=== PATIENT | male | born 1965 | race Caucasian/White ===

== ENCOUNTER 2019-12-25 03:01 | Inpatient (IN) | payer OTHER ==
[2019-12-25 03:30] VITALS: BMI 91.7
[2019-12-25] MEDS ORDERED: SODIUM CHLORIDE 0.9% 500 ML INFUS.BAG IV ONE (04:08)
[2019-12-25] MEDS ORDERED: CYANOCOBALAMIN (VITAMIN B-12) 1000 MCG/1 ML VIAL IM ONE (04:15)
[2019-12-25] MEDS ORDERED: VANCOMYCIN 1 GM in D5W (PRE-DOCKED) 1,000 MG/250 ML IVPB ONE (04:22)
[2019-12-25] MEDS ORDERED: AMPICILLIN NA/SULBACTAM NA 3 GM in SODIUM CHLORIDE 100 ML IVPB ONE (04:23)
[2019-12-25] MEDS ORDERED: VANCOMYCIN 1 GRAM (PRE-DOCKED) 1,000 MG/250 ML BAG IVPB ONE (04:29)
[2019-12-25 05:19] LABS: BASO % 0.4 % (0-2.0); EOS % 5.4 % (0-4.5); HEMATOCRIT 37.5 % (35.4-49); HEMOGLOBIN 12.6 GM/dL (11.7-16.9); LYMPH % 15.5 % (8-40); MCH 28.2 pg (25.7-33.7); MCHC 33.5 g/dl (32.0-35.9); MEAN PLT VOLUME 8.7 fl (7.5-11.1); MONO % 8.1 % (3.8-10.2); NEUT % 70.6 % (42.8-82.8); PLATELET COUNT 187 K/MM3 (134-434); RBC 4.47 M/mm3 (4.00-5.60); RDW 14.9 % (11.9-15.9); WHITE BLOOD COUNT 10.1 K/mm3 (4.0-10.0)
[2019-12-25 05:21] LABS: CHLORIDE 98 mmol/L (98-107); POTASSIUM 4.1 mmol/L (3.5-5.1); SODIUM 136 mmol/L (136-145)
[2019-12-25 05:23] LABS: ALBUMIN 3.7 g/dl (3.4-5.0); ANION GAP 5 MMOL/L (8-16); CO2 33 mmol/L (21-32); GLUCOSE,RANDOM 199 mg/dL (74-106)
[2019-12-25 05:24] LABS: BLOOD UREA NITROGEN 13.2 mg/dL (7-18)
[2019-12-25 05:27] LABS: SGOT/AST 14 U/L (15-37); SGPT/ALT 18 U/L (13-61)
[2019-12-25 05:28] LABS: BILIRUBIN,TOTAL 0.4 mg/dL (0.2-1)
[2019-12-25 05:30] LABS: ALK PHOS 162 U/L (45-117)
[2019-12-25] MEDS ORDERED: ACETAMINOPHEN 325 MG TABLET (FP) PO PRN (07:23)
[2019-12-25 09:28] LABS: URINE AMPHETAMINES NEGATIVE ng/ml (CUTOFF=500); URINE BARBITURATES NEGATIVE ng/ml (CUTOFF=200); URINE BENZODIAZEPINES NEGATIVE ng/ml (CUTOFF=200)
[2019-12-25 09:29] LABS: METHADONE, UR NEGATIVE ng/ml (CUTOFF=300); PHENCYCLIDINE,URINE NEGATIVE ng/ml (CUTOFF=25)
[2019-12-25 09:38] LABS: COCAINE, UR POSITIVE ng/ml (CUTOFF=300); OPIATES, URI POSITIVE ng/ml (CUTOFF=300)
[2019-12-25] MEDS ORDERED: ENOXAPARIN NA (PORCINE) 40 MG/0.4 ML DISP.SYRIN SQ SCH (10:00)
[2019-12-25 10:40] LABS: CHOLESTEROL 218 mg/dL (50-200)
[2019-12-25 10:41] LABS: LDL CHOLESTEROL (ONLY SJRH) 149 mg/dL (5-100); TRIGLYCERIDES 187 mg/dL (0-150)
[2019-12-25 10:43] LABS: HDL CHOLESTEROL 37 mg/dL (40-60)
[2019-12-25] MEDS ORDERED: INSULIN SLIDING SCALE (NOVOLOG) 1 VIAL SQ SCH (11:00)
[2019-12-25] MEDS ORDERED: amLODIPine BESYLATE 10 MG TABLET (FP) PO SCH (11:45)
[2019-12-25] MEDS ORDERED: amLODIPine BESYLATE 5 MG TABLET (FP) ONE (12:26)
[2019-12-25 14:16] VITALS: BP 158/96; PULSE 78; TEMP 97.9
[2019-12-25] MEDS ORDERED: AMPICILLIN NA/SULBACTAM NA 3 GM in SODIUM CHLORIDE 100 ML IVPB SCH (15:00)
[2019-12-25] MEDS ORDERED: risperiDONE 1 MG TABLET PO SCH (22:00)
[2019-12-25] MEDS ORDERED: ATORVASTATIN CA 40 MG TABLET (FP) PO SCH (22:00)
== END 2019-12-25 12:45 | disposition left against medical advice (07) | DRG 383 ==
LOC: JER 03:01 → JERBED 05:10
PROVIDERS: ADMIT Internal Medicine
DX: L03.115 Cellulitis of right lower limb (principal); E87.3 Alkalosis; L97.819 Non-pressure chronic ulcer of other part of right lower leg with unspecified severity; Z91.14 Patient's other noncompliance with medication regimen; E66.01 Morbid (severe) obesity due to excess calories; Z68.45 Body mass index [BMI] 70 or greater, adult; I10 Essential (primary) hypertension; F17.210 Nicotine dependence, cigarettes, uncomplicated; E78.5 Hyperlipidemia, unspecified; R44.1 Visual hallucinations; R44.2 Other hallucinations; F14.122 Cocaine abuse with intoxication with perceptual disturbance; F11.10 Opioid abuse, uncomplicated; E11.622 Type 2 diabetes mellitus with other skin ulcer; F14.151 Cocaine abuse with cocaine-induced psychotic disorder with hallucinations
CPT/HCPCS: 36415; 71046-TC-FY; 73610-TC-RT-FY; 73630-TC-RT-FY; 80053; 80061; 80307; 82550; 82607; 82962; 83036; 83721; 84443; 84484; 85025; 85651; 86140; 86780; 87040; 87070; 87186; 87205; 93005; 93010; 99285-25; C9803; U0003